=== PATIENT | female | born 1965 | race Caucasian/White ===

== ENCOUNTER → 2022-01-09 | Day surgery (SDC) | payer OTHER ==
[~2022-01-09] VITALS: Ht 162.6 cm; Wt 63.6 kg
[~2022-01-09] MED LIST: CHOL5000 PO; DEXAMETHASONE SOD PHOS 4 MG/ML VIAL ONE; GLUC-11 PO; HYDROmorphone 2 MG/ML INJ. IVP PRN; IV RINGERS,LACTATED 1000ML 1,000 ML IV SCH; LIDOCAINE 2% PF 5 ML VIAL. ONE; MORPHINE SULFATE 2 MG/ML INJ. IVP PRN; OMEP40CA7 PO; ONDANSETRON PF 4 MG/2 ML VIAL. ONE; PROCHLORPERAZINE 10 MG/2 ML VIAL. IVP PRN; PROPOFOL 10 MG/ML (20ML) VIAL. IV ONE; fentaNYL PF VIAL 100 MCG/2 ML VIAL IVP PRN
[2022-01-09 09:14] VITALS: BP 122/81
[2022-01-09 11:26] VITALS: BP 118/82
--- NOTE | 2022-01-10 18:08 | PATHOLOGY ---
[facility] Accession Number: [id number] . 01 Material submitted: . PART A: small bowel - SMALL BOWEL BIOPSY PART B: stomach - ANTRUM AND BODY BIOPSY PART C: esophagus - DISTAL ESOPHAGUS BIOPSY. Modifiers: distal PART D: esophagus - MID ESOPHAGUS BIOPSY. Modifiers: mid PART E: rectum - RECTAL POLYP BIOPSY . 01 Clinical history: . DYSPLASTIC HX OF COLON POLYPS/CA EGD/COLON ESOPHAGITIS/POLYP . 02 Diagnosis: A. Small bowel biopsies: - No diagnostic abnormalities. . B. Gastric biopsies, gastric body and antrum: - Mild reactive gastropathy. . C. Esophageal biopsies, distal esophagus: - Reflux changes. . D. Esophageal biopsies, middle esophagus: - Segments of mildly hyperplastic squamous esophageal mucosa. . E. Colorectal biopsy, rectal polyp: - Hyperplastic polyp. . (JPM:apurva; 01/10/2022) [facility] 01/10/2022 1338 Local . 02 Comment: Sections of the small bowel biopsy reveal segments of duodenal and small intestine mucosa. Where best oriented, the mucosal villi show no sprue-like changes or significant inflammatory changes. . Sections of the gastric biopsy reveal two segments of gastric body mucosa and a segment of gastric antral mucosa. The gastric body mucosa shows focal congestion and slight superficial chronic inflammation. The gastric antral mucosa shows congestion, foveolar hyperplasia, and no significant inflammation. A properly controlled immunoperoxidase stain for Helicobacter is negative for Helicobacter organisms. . Sections of the distal esophageal biopsy reveal segments of hyperplastic squamous esophageal mucosa with contiguous and separate segments of gastric mucosa showing focal chronic inflammation. The findings are consistent with reflux changes. There is no evidence of Chacon's change, dysplasia or malignancy. . Sections of the middle esophageal biopsy reveal segments of tangentially oriented and mildly hyperplastic squamous esophageal mucosa. . Sections of the rectal biopsy reveal a hyperplastic polyp. There are no adenomatous changes or evidence of malignancy. . 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 . Special stain performed: Immunoperoxidase stain for Helicobacter on B1 . 02 Electronically signed: . Álvaro Marte MD, Pathologist NPI- [id number] . 01 Gross description: . A. The specimen is received in formalin, labeled "Maritza Milind, small bowel biopsy". Received are three segments of pale cerna tissue ranging in size from 0.4-0.5 cm in maximum dimensions. The specimen is submitted entirely in cassette A1. . B. The specimen is received in formalin, labeled "Maritza Milind, antrum and body biopsy". Received are three segments of pale cerna tissue ranging in size for 0.3-0.4 cm in maximum dimensions. The specimen is submitted entirely in cassette B1. . C. The specimen is received in formalin, labeled "Maritza Milind, distal esophagus biopsy". Received are three segments of pale cerna tissue ranging in size from 0.3-0.6 cm in maximum dimensions. The specimen is submitted entirely in cassette C1. . D. The specimen is received in formalin, labeled "Maritza Milind, mid esophagus biopsy". Received are two segments of pale cerna tissue measuring 0.3 and 0.5 cm in maximum dimensions. The specimen is submitted entirely in cassette D1. . E. The specimen is received in formalin, labeled "Maritza Milind, rectal polyp biopsy". Received is a segment of pale cerna tissue measuring 0.2 cm in maximum dimensions. The specimen is submitted entirely in cassette E1. (CAA; 01/09/2022) QAC/QAC 01/09/2022 1532 Local . 02 Pathologist provided ICD-10: K31.9, K63.5, R13.10, Z80.0 . 02 CPT . 712855, 190334, [id number], [id number], [id number], [id number] Specimen Comment: A courtesy copy of this report has been sent to [phone], [phone] Specimen Comment: [id number] Specimen Comment: Report sent to / DR CORTÉS Specimen Comment: A duplicate report has been generated due to demographic updates. Performed at: [address] [place], [place] [address] [id number] MD Bonifacio Arellano MD Phone: [phone] Performed at: [address] [id number] MD Álvaro Marte MD Phone: [phone]
== END | disposition home or self-care (01) ==
LOC: SURG 08:43
PROVIDERS: ATTEND Internal Medicine Gastroenterology
DX: Z12.11 Encounter for screening for malignant neoplasm of colon (principal); R13.10 Dysphagia, unspecified; K21.00 Gastro-esophageal reflux disease with esophagitis, without bleeding; K63.5 Polyp of colon; K63.89 Other specified diseases of intestine; K31.89 Other diseases of stomach and duodenum; K64.0 First degree hemorrhoids; K62.1 Rectal polyp; J45.909 Unspecified asthma, uncomplicated; M19.90 Unspecified osteoarthritis, unspecified site; F41.9 Anxiety disorder, unspecified; Z98.51 Tubal ligation status; Z98.890 Other specified postprocedural states; Z79.899 Other long term (current) drug therapy; Z88.0 Allergy status to penicillin; Z88.6 Allergy status to analgesic agent; Z80.0 Family history of malignant neoplasm of digestive organs
CPT/HCPCS: 43239; 43450; 45380; 88305; 88342; J1100; J2405; J2704; 45382